=== PATIENT | male | born 1945 | race Caucasian/White ===

== ENCOUNTER 2019-05-11 05:30 | Inpatient (IN) ==
[2019-04-20 11:49] LABS: BUN Creatinine Ratio 13.9 (10-20); Calcium 8.9 mg/dl (8.5-10.1); Creatinine Clr Calc Pharmacy 81.9 ml/min; Est GFR (African American) 77.6; Potassium 4.4 mmol/L (3.5-5.1)
--- NOTE | 2019-04-20 11:51 | Anesthesiology Consultation ---
Date of Service April 20, 2019 Assessment & Plan (1) Encounter for pre-operative examination: Chart Review Chart Review: Acceptable Risk for Surgery (pending [facility] cardio clearance 05/07/19) and Patient seen in Pre Admission Testing Teaching & Discussion Instructed NPO after midnight before surgery, except medications with 15 cc of water. Medication instructions provided according to the PAT guidelines. History Surgery Operation Date: 05/11/19 07:30 Proposed Procedures p Robotic Laparoscopic Prostatectomy - Byron Astorga, Height/Weight Height: 5 ft 11 in Weight: 118.7 kg Allergies Allergy/AdvReac Type Severity Reaction Status Date / Time ketoconazole Allergy Unknown Rash Verified 04/20/19 09:09 metformin AdvReac Unknown Diarrhea Verified 04/20/19 09:09 Medications Home Medications Medication Instructions Recorded Confirmed Last Taken aspirin 81 mg tablet,delayed 81 mg PO DAILY 01/19/19 04/20/19 Unknown release nitroglycerin 0.4 mg sublingual 0.4 mg SL UD PRN 01/19/19 04/20/19 Unknown tablet pantoprazole 40 mg tablet,delayed 40 mg PO QAM 01/19/19 04/20/19 04/15/19 release atorvastatin 80 mg tablet 40 mg PO QAM tab 03/24/19 04/20/19 04/15/19 folic acid 1 mg tablet 1 mg PO DAILY 03/24/19 04/20/19 Unknown lisinopril 10 mg tablet 20 mg PO QAM 03/24/19 04/20/19 04/15/19 metoprolol tartrate 25 mg tablet 25 mg PO BID 03/24/19 04/20/19 04/15/19 multivitamin 1 tab PO DAILY 03/24/19 04/20/19 Unknown naproxen sodium 220 mg capsule 440 mg PO HS PRN cap 03/24/19 04/20/19 Unknown semaglutide 1 mg/dose (2 mg/1.5 2 mg SQ .once per week ml 03/24/19 04/20/19 Unknown mL) subcutaneous pen injector Past Medical History Medical History (Updated 04/20/19 @ 11:54 by Lewis Martinez) Diabetes History of heart attack DEC 2017 ...STENT X1 Hypercholesterolemia Hypertension Prostate cancer (Chronic) Sleep apnea DOES NOT USE CPAP Exercise / Class Metabolic Activity III < 4 Walking/Shop/Light housework (LIMITED MOBILITY 2/2 KNEE PAIN; DENIES CP OR SOB) Past Surgical History Surgical History H/O heart artery stent X 1 History of cardiac cath [place]...2018 - STENT X 1 History of prostate biopsy History of tooth extraction TEETH OUT Status post right knee replacement Past Anesthesia History No Hx of Anesthesia Complications and No Family Hx of Anesthesia Complications History of PONV No Hx of PONV and No Hx of Motion Sickness Social History Smoking Status: Former smoker tobacco type: cigarettes Smoking cigarettes per day: Quit 35 yrs ago;Less than 1 PPD x 15yrs Do You Dip or Chew Tobacco: No Smoking End Date: 40+ YRS AGO Hx Alcohol Use: No Hx Substance Use: No substance use type: does not use Review of Systems Pt denies any recent chest pain, shortness of breath, palpitations, cough, fever or URI. +congestion/cold Physical Exam Vital Signs BP: 104/76 P: 95bpm SPO2: 93% RA T: 98.0 F R: 16 ENMT Mouth: + dentures and + edentulous Thyromental Distance: > or= 3.5 Finger Breadths (4) Mallampati Class: III Neck normal visual inspection and + facial hair (full satudillo with short trimmed mustache, pt advised to trim prior to surgery); neck extension not limited Respiratory normal respiratory effort Auscultation: lungs clear to auscultation bilaterally Cardiovascular Rate/Rhythm: regular rate and regular rhythm Heart Sounds: no murmur Vessels: no carotid bruit Extremities: no edema Testing Laboratory Results 04/20/19 10:20 04/20/19 10:20 Urine Color Yellow 04/20/19 Unknown Urine Appearance Clear (Clear) 04/20/19 Unknown Urine pH 6.5 (4.5-7.5) 04/20/19 Unknown Ur Specific [place] > 1.045 (1.000-1.030) H 04/20/19 Unknown Urine Protein Negative (Negative) 04/20/19 Unknown Urine Glucose (UA) Negative (Negative) 04/20/19 Unknown Urine Ketones Negative (Negative) 04/20/19 Unknown Urine Nitrite Negative (Negative) 04/20/19 Unknown Ur Leukocyte Esterase Negative (Negative) 04/20/19 Unknown Blood Type B Positive 04/20/19 10:20 Antibody Screen NEGATIVE 04/20/19 10:20 *surgeon's office made aware of elevated WBC count Electrocardiogram Date: 04/08/19 Findings: + NSR @ (87bpm with sinus arrhythmia) Inferior infarct cited on or before 07/25/2017. Cannot rule out anterior infarct, age undetermined. Compared with EKG of 01/14/2018, T wave inversion less evident in inferior leads. Chest X-Ray Date: 04/20/19 Findings: + NAD Echocardiogram Date: 09/29/17 EF: 50-55% Normal LV size, mild concentric LVH. Base to mid inferior and adjacent septum severely hypokinetic. Small pericardial effusion. There is no diastolic compression of the right ventricle to suggest cardiac tamponade. Cardiac Catheterization Date: 12/28/17 Inferior STEMI/subtotal mid RCA occlusion. Minimal non-culprit coronary artery disease. Successful PCI of mid RCA with single drug-eluting stent.
--- NOTE | 2019-04-20 11:56 | PAT Medication Instructions ---
Medication Instructions Date of Service April 20, 2019 Home Medications aspirin 81 mg tablet,delayed release 81 mg PO DAILY nitroglycerin 0.4 mg sublingual tablet 0.4 mg SL UD PRN pantoprazole 40 mg tablet,delayed release 40 mg PO QAM atorvastatin 80 mg tablet 40 mg PO QAM tab folic acid 1 mg tablet 1 mg PO DAILY lisinopril 10 mg tablet 20 mg PO QAM metoprolol tartrate 25 mg tablet 25 mg PO BID multivitamin 1 tab PO DAILY naproxen sodium 220 mg capsule 440 mg PO HS PRN semaglutide 1 mg/dose (2 mg/1.5 mL) subcutaneous pen injector 2 mg SQ .once per week Continue as directed semaglutide 1 mg/dose (2 mg/1.5 mL) subcutaneous pen injector 2 mg SQ .once per week nitroglycerin 0.4 mg sublingual tablet 0.4 mg SL UD PRN ASK your surgeon for instructions naproxen sodium 220 mg capsule 440 mg PO HS PRN ASK your prescriber and surgeon aspirin 81 mg tablet,delayed release 81 mg PO DAILY DO NOT take the morning of surgery folic acid 1 mg tablet 1 mg PO DAILY lisinopril 10 mg tablet 20 mg PO QAM multivitamin 1 tab PO DAILY Take morning of surgery With a small sip of water, OTHERWISE NOTHING TO EAT OR DRINK AFTER MIDNIGHT: pantoprazole 40 mg tablet,delayed release 40 mg PO QAM atorvastatin 80 mg tablet 40 mg PO QAM metoprolol tartrate 25 mg tablet 25 mg PO BID Other Notes If you have any questions please call us at [phone] or [phone] or [phone] or [phone]
--- NOTE | 2019-04-20 12:21 | XRay Report ---
XR chest Pre-admission PA/Lat HISTORY: 74 years-old Male pat preoperative exam. No acute chest complaints COMPARISON: Chest radiograph 12/28/2017 TECHNIQUE: PA and lateral views of the chest FINDINGS: Cardiomediastinal and hilar silhouettes are within normal limits. Calcified plaque of the thoracic ao rtic arch. No pneumothorax, pleural effusion, focal airspace consolidation or overt pulmonary edema. Degenerative changes of the shoulders and spine. IMPRESSION: No acute process. The above report was generated using voice recognition software. It may contain grammatical, syntax o r spelling errors. Electronically signed by: Jeff Rollins M.D. 04/20/2019 12:20 PM
[2019-04-20 12:55] LABS: Basophils # (auto) 0.05 K/uL (0-0.2); Basophils % (auto) 0.3 %; Eosinophils # (auto) 0.33 K/uL (0-0.5); Eosinophils % (auto) 2.1 %; Hemoglobin 16.5 g/dL (14.0-18.0); Immature Granulocytes # (auto) 0.05 K/uL (0.00-0.02); Immature Granulocytes % (auto) 0.3 %; Lymphocytes # (auto) 2.14 K/uL (1.2-3.4); Lymphocytes % (auto) 13.9 %; Mean Corpuscular Hemoglobin 29.7 pg (25-34); Mean Corpuscular Hgb Conc 33.7 g/dL (32-36); Mean Corpuscular Volume 88.3 fL (80-100); Mean Platelet Volume 10.9 fL (7.4-10.4); Monocytes % (auto) 8.4 %; Neutrophils # (auto) 11.58 K/uL (1.4-6.5); Platelet Count 229 K/uL (130-400); RDW Coefficient of Variation 13.4 % (11.5-14.5); RDW Standard Deviation 43.5 fL (36.4-46.3); Red Blood Count 5.55 M/uL (4.7-6.1); White Blood Count 15.45 K/uL (4.8-10.8)
[2019-04-20 13:11] LABS: Appearance Urine Clear (Clear); Bilirubin Urine Negative (Negative); Blood Urine Negative (Negative); Color Urine Yellow; Glucose Urine UA Negative (Negative); Ketones Urine Negative (Negative); Leukocyte Esterase Urine Negative (Negative); Nitrite Urine Negative (Negative); Protein Urine Negative (Negative); Specific Gravity Urine > 1.045 (1.000-1.030); Urobilinogen Urine Negative (Negative); pH Urine 6.5 (4.5-7.5)
[2019-05-11] MEDS ORDERED: LR 15ML/HR IV SCH (06:00)
[2019-05-11] MEDS ORDERED: LARYING-O-JET KIT (LTA) ONE (06:41)
[2019-05-11] MEDS ORDERED: PROPOFOL IV EMULSION 10 MG/ML 20 ML VIAL IV ONE (06:41)
[2019-05-11] MEDS ORDERED: MIDAZOLAM HCL 1 MG/ML 2ML VIAL ONE (06:41)
[2019-05-11] MEDS ORDERED: fentaNYL citrate 100 MCG/2 ML VIAL ONE ×5 (06:41→12:39)
[2019-05-11] MEDS ORDERED: LIDOCAINE HCL 2% 2 ML VIAL/AMP(20MG/ML) INFIL ONE (06:41)
[2019-05-11] MEDS ORDERED: ACETAMINOPHEN 1000 MG/100 ML IV IV ONE (06:51)
[2019-05-11] MEDS ORDERED: BUPIVACAINE 0.5 % 5 MG/1 ML MPF 30ML VIAL ONE (06:58)
--- NOTE | 2019-05-11 07:19 | History & Physical Bridge Note ---
Date of Service May 11, 2019 History & Physical Bridge Note I have examined the patient, reviewed the History & Physical and in the interval since the performance of the History & Physical I have noted the following changes of clinical significance: no changes noted
[2019-05-11] MEDS ORDERED: PHENYLEPHRINE 100MCG/ML 5ML SYR ONE ×2 (08:28→09:40)
[2019-05-11] MEDS ORDERED: ROCURONIUM BROMIDE 10 MG/ML 5 ML VIAL ONE ×3 (08:29→09:16)
[2019-05-11] MEDS ORDERED: CEFAZOLIN 250 MG/ML 1 GM VIAL ONE (08:29)
[2019-05-11] MEDS ORDERED: ePHEDrine sulfate 50 MG/ML SYR ONE (08:29)
[2019-05-11] MEDS ORDERED: CEFAZOLIN 3000MG 72.5 ML IV ONE (09:33)
[2019-05-11] MEDS ORDERED: NALOXONE HCL 0.4 MG/1 ML VIAL/CARP IV PRN (10:13)
[2019-05-11] MEDS ORDERED: ONDANSETRON INJ 2 MG/ML 2 ML VIAL IV PRN ×2 (10:13→14:37)
[2019-05-11] MEDS ORDERED: PROMETHAZINE HCL 12.5 MG in SODIUM CHLORIDE 0.9% 50 ML IV PRN (10:13)
[2019-05-11] MEDS ORDERED: LABETALOL HCL IV 5 MG/ML 20ML IV PRN (10:13)
[2019-05-11] MEDS ORDERED: FLUMAZENIL 0.1 MG/1 ML 10 ML VIAL IV PRN (10:13)
[2019-05-11] MEDS ORDERED: HYDROmorphone INJ 1 MG/ML SYRINGE IV PRN (10:13)
[2019-05-11] MEDS ORDERED: ATROPINE SULFATE 0.1 MG/ML 10ML SYR IV PRN (10:13)
[2019-05-11] MEDS ORDERED: ePHEDrine sulfate 50 MG/ML AMP IV PRN (10:13)
[2019-05-11] MEDS ORDERED: SURGICEL ABSORB HEMOSTAT 2IN X 14IN TOP ONE (11:06)
[2019-05-11] MEDS ORDERED: GLYCOPYRROLATE 0.2 MG/ML VIAL ONE (11:39)
[2019-05-11] MEDS ORDERED: NEOSTIGMINE METHYLSULFATE 5 MG/5 ML SYR ONE (11:39)
[2019-05-11] MEDS ORDERED: ONDANSETRON INJ 2 MG/ML 2 ML VIAL ONE ×2 (12:39)
--- NOTE | 2019-05-11 12:57 | Post Operative Brief Note ---
PG Immediate Post Op with CF Date of Surgery May 11, 2019 Pre & Post Diagnosis Operation Date: 05/11/19 07:30 Pre-Op Diagnosis: Prostate Cancer Post-Op Diagnosis: Prostate Cancer I identified the patient and participated in the time-out.: Yes Procedure Operation Date: 05/11/19 07:30 Actual Procedures p Robotic-assist Laparoscopic Prostatectomy, bilateral pelvic lymph node dissection - Byron Astorga DO Surgeon Byron Astorga, II, DO Porcelain Enamel Laborer Kvng ELIZABETH Estimated Blood Loss 200 Findings Consistent with Post-Op Diagnosis Prostate fixated posteriorly near right seminal vesicle Specimens Specimen Description: Permanent specimens A: prostate and seminal vesicles B: mass posterior to prostate C: right pelvic lymph nodes (sent fresh) D: left pelvic lymph nodes (sent fresh) E: apex margin Drains Vieyra Catheter (16fr vieyra catheter placed at beginning of procedure by surgeon, vieyra demonstrates clear yellow urine.Output measured and recorded by anesthesia. Catheter replaced with 18fr silicone vieyra intraoperatively and r emains with patient upon discharge from OR.) and Robert-Valladares Drain (10mm flat) Anesthesia Type General Complications none Disposition Disposition: Recovery Room Overlapping Procedure I was present for: the critical portions of procedure. I was immediately available: during the entire case. Back up surgeon: was not required during procedure.
[2019-05-11] MEDS: fentaNYL citrate 100 MCG/2 ML VIAL IV PRN ×2 (13:27→13:36)
[2019-05-11 13:43] LABS: Basophils # (auto) 0.05 K/uL (0-0.2); Basophils % (auto) 0.2 %; Eosinophils # (auto) 0.06 K/uL (0-0.5); Eosinophils % (auto) 0.3 %; Hematocrit (blood only) 45.4 % (42-52); Hemoglobin 15.3 g/dL (14.0-18.0); Immature Granulocytes # (auto) 0.06 K/uL (0.00-0.02); Immature Granulocytes % (auto) 0.3 %; Lymphocytes # (auto) 2.58 K/uL (1.2-3.4); Lymphocytes % (auto) 11.7 %; Mean Corpuscular Hemoglobin 29.7 pg (25-34); Mean Platelet Volume 9.8 fL (7.4-10.4); Monocytes # (auto) 1.33 K/uL (0.11-0.59); Monocytes % (auto) 6.1 %; Neutrophils % (auto) 81.4 %; Platelet Count 318 K/uL (130-400); RDW Coefficient of Variation 13.3 % (11.5-14.5); RDW Standard Deviation 42.8 fL (36.4-46.3); Red Blood Count 5.16 M/uL (4.7-6.1); White Blood Count 21.98 K/uL (4.8-10.8)
[2019-05-11 13:44] LABS: Mean Corpuscular Hgb Conc 33.7 g/dL (32-36)
--- NOTE | 2019-05-11 13:55 | Anesthesiology Progress Note ---
Date of Service May 11, 2019 Anesthesia Post Procedure Vital Signs Vital Signs: Temp Pulse Pulse Resp BP BP Pulse Ox 05/11/19 13:45 88 15 126/69 97 05/11/19 13:35 96 H 22 118/76 96 05/11/19 13:25 93 H 16 157/80 H 96 05/11/19 13:15 83 12 173/90 H 98 05/11/19 13:06 36.4 C L 98 H 17 143/96 H 98 05/11/19 06:04 36.6 C 109 H 20 132/87 92 Pain Intensity Abdomen: Pain Intensity: 3 Transfer of Care Handoff Completed per policy Notes Mental Status: alert / awake / arousable Patient Amnestic to Procedure: Yes Nausea / Vomiting: adequately controlled Pain: adequately controlled Airway Patency, RR, SpO2: stable & adequate BP & HR: stable & adequate Hydration State: stable & adequate Anesthetic Complications: no major complications apparent
[2019-05-11 14:03] LABS: BUN Creatinine Ratio 10.5 (10-20); Calcium 8.8 mg/dl (8.5-10.1); Creatinine Clr Calc Pharmacy 65.7 ml/min; Est GFR (African American) 63.3; Est GFR (Non-African American) 54.6; Potassium 4.5 mmol/L (3.5-5.1)
--- NOTE | 2019-05-11 14:03 | Operative Report ---
PG Post Operative Report Pre & Post Diagnosis Operation Date: 05/11/19 07:30 Pre-Op Diagnosis: Prostate Cancer Post-Op Diagnosis: Prostate Cancer I identified the patient and participated in the time-out.: Yes Procedure Operation Date: 05/11/19 07:30 Actual Procedures p Robotic-assist Laparoscopic Prostatectomy, bilateral pelvic lymph node dissection - Byron Astorga DO Surgeon Byron Astorga, II, DO Roofing Tile Sorter Kvng ELIZABETH Estimated Blood Loss 200 Findings Consistent with Post-Op Diagnosis Very large prostate with median lobe. Significant issues with resection of the prostate near the seminal vesicles and the entire posterior area. Nodule/mass posterior to the prostate above the perirectal fascia. Specimens Prostate and Seminal Vesicle Left Pelvic Lymph Nodes Right Pelvic Lymph Nodes. Nodule posterior to prostate Margin at [place]. Drains Veiyra catheter. Anesthesia Type General Complications none Disposition Disposition: Recovery Room Indications Patient with Prostate Cancer. Risk and benefits were discussed at length. Patient elected to undergo robotic assisted laparoscopic Radical Prostatectomy. Description of Procedure The patient was brought to the operative suite and placed under general endotracheal intubation anesthesia in the supine position. The patient was transferred to the dorsal lithotomy position. At this point, the patient prepped and draped in the usual sterile fashion and a timeout was completed. Preoperative antibiotics of Ancef 3 grams had been given. BRADEN's and SCD's were placed on the patient's lower extremities. A catheter was placed using sterile technique. With the time out completed the patient was placed into Trendelenburg and the skin at the umbilicus was anesthetized. A small incision was made superior to the umbilicus. A Varess Needle was placed and confirmed to be in the abdominal cavity. Water drop test passed. The Abdominal cavity was insufflated to 15 mmHG. The camera port was then placed. A laparoscopic camera was placed into the port and the abdominal cavity inspected. No concerning features were noted. At this point, the skin was marked for port placement and 8 mm working ports were placed. The skin was anesthetized down to fascia and an approx 1cm incision was made to place the 3 x 8 mm ports. A 12 mm and 5 mm therapist's assistant ports were also placed in similar fashion under direct visualization. The patient was transferred into steep Trendelenburg position and the legs lowered. The robo t was positioned and docked. The camera was placed and all trocars were positioned under direct visualization. Caesar phillips Haley ELIZABETH were integral in port placement, camera utilization, and docking procedure. They both remained in sterile attire and then proceeded to assist the remainder of the case. The were involved in the entire procedure from opening to closing. At this point, I transitioned to the robotic console. At this point, the sigmoid colon was mobilized superiorly and the pelvis assessed. Adhesions were freed to allow mobilization. The peritoneum in the midline was opened between rectum and bladder and the vas deferens and seminal vesicles exposed. These were dissected with blunt technique. The vas was clipped and cut and mobilized. Cautery was used to assist dissection avoiding the tissue posteriorly near the rectum. The tissues lateral to the seminal vesicles were clipped with a hemolock and all bleeding controlled. This was taken as inferior as possible from this position. The medial umbilical ligaments were then identified and the peritoneum directly lateral on the right followed by the left was opened. The tissues were bluntly dissected to free the bladder's lateral attachments. This was taken down to the pubic bone and exposed the endopelvic fascia bilaterally. The medial ligaments were cut and the bladder dropped. The tissues was dissected anterior to the prostate. The endopelvic fascia on each side was then opened and the lateral edges of the prostate dissected. The Dorsal venous complex of the prostate was dissected and assessed. A 2-0 suture was used to ligate the vessels. A suspension stitch was used and clipped. Electrocautery was used to cut the anterior attachments, the puboprostatic ligaments, and venous tissues. The vieyra was manipulated to better visual the bladder neck and dissection was taken using electrocautery. The bladder neck was opened and dissected from the prostate. The UO were identifed and dissection taken in a direction to avoid each side. A large median lobe was appreciated which required careful dissection. This slowed dissection down. The prostate itself was found to be very large and made dissection difficult. The bladder was then opened posteriorly. The vas stump and seminal vesicles were exposed and used to assist in traction to dissect. The prostatic pedicles were better exposed. The posterior prostate was dissected. During this dissection multiple areas were found to be severely adhered to the prostate. The right seminal vesicle was significant attached proximal to the prostate down to the posterior fascial layers. This was dissected free. Dr. Garcia with General Surgery was alerted and assessed to see if there was a concern for rectal involvement. A probe was utilized. There was not a significant concern. A mass vs nodule was noted in the area discrete from the surrounding tissues but attached to the tissues. The nodule was able to be dissected free. This was sent as a separate specimen. An attempt was made to limit cautery and utilize cold dissection of the lateral posterior prostate to attempt preservation of the neurovascular bundle bilaterally. Hemolock clips were utilized to clip the prostatic pedicle bilaterally. This was achieved with some success on the left, however due to the severe adherence as mentioned above, this was limited on the right. The dissection was taken to the apex of the prostate. The anterior prostate was then released and the urethra exposed. Cold cutting was used to open the anterior portion and expose the catheter. This was removed and the urethra incised. The prostate was further freed and grasped and removed from the field. An additional small amount of tissue was taken from the urethral side and sent separately. The entire dissection bed was inspected. Hemostatic agent was placed in the region. No areas of injury or bleeding was noted. Care was taken to examine the perirectal tissues. A probe was placed and no injuries or other issues were observed. The bladder neck and urethra were then approximated with a running barbed suture starting at the 5 o'clock position and moving to the 12 o'clock on each side. This was tied at the anterior portion. A leak test was completed without any evidence of issues. The right and left pelvic lymph tissue was identified in relation to the iliac vessels. Distal dissection was taken to the Node of [place]. Inferiorly the obturator vessels and nerve were identified. Lymphatic tissue within the surround fat tissue was dissected. This packet of tissues were sent for pathologic analysis and lymph node assessment. This was done for each separate side. Hemostatic agent was placed on the exposed vessels. The entire dissection space was inspected one final time. No bleeding or injuries or areas of concern were noted. No tumor or other concerning features were noted. At this point, the robot was undocked and moved away from the patient. The patient was taken out of Trendelenberg. The port sites were all assessed laparoscopically. The endoscopic bag was moved into the midline port. The 10mm port site was utilized to place a flat drain into the pelvis. This was secured with a silk suture. The other ports were assessed and no issues observed. The umbilical incision was opened further exposing fascia which was then opened in order to removed the prostate in the bag. The prostate was removed. A running vicryl 1-0 suture was used to close fascia. The skin at each site was closed with a running 4-0 Monocryl suture. The area was cleaned and glue placed on each incision. The patient was cleaned and bandaged, aroused from anesthesia, and transferred to the pacu in stable condition having tolerated the procedure well with no complications. I was present and participated in all aspects of the procedure. Caesar and GLENN De Leon were critical in the portions as mentioned above. Will plan to observe postoperatively and monitor. Vieyra to be remain in place until followup. I attest to the content of the Intraoperative Record and any orders documented therein. Any exceptions are noted below.
[2019-05-11] MEDS ORDERED: OXYCODONE HCL IR 5 MG TAB (IMMEDIATE RELEASE) PO PRN (14:37)
[2019-05-11] MEDS ORDERED: NITROGLYCERIN SL 0.4 MG/TAB TAB SL PRN (14:37)
[2019-05-11] MEDS ORDERED: MoRPHine SULFATE 4 MG/ML 1 ML CARP\\VIAL ONE (14:39)
[2019-05-11] MEDS ORDERED: MoRPHine SULFATE 2 MG/ML CARP IV PRN (14:44)
[2019-05-11] MEDS ORDERED: MoRPHine SULFATE 4 MG/ML 1 ML CARP\\VIAL IV PRN (14:45)
[2019-05-11] MEDS ORDERED: PHARMACY GLYCEMIC MGMT CONSULT PRN (14:48)
[2019-05-11] MEDS ORDERED: DEXTROSE 50% 50 ML SYRINGE IV PRN (15:00)
[2019-05-11] MEDS ORDERED: CARBOHYDRATES FOR HYPOGLYCEMIA PO PRN (15:00)
[2019-05-11] MEDS ORDERED: GLUCOSE 10 TABS/TUBE PO PRN (15:00)
[2019-05-11] MEDS ORDERED: GLUCOSE 40% GEL 15 GM TUBE PO PRN (15:00)
[2019-05-11] MEDS ORDERED: GLUCAGON FOR INJ 1 MG VIAL IM PRN (15:00)
--- NOTE | 2019-05-11 15:00 | Pharmacy Report ---
Glycemic Control Consultation - Date of Service May 11, 2019 - Scope Scope: Glycemic Pharmacist consulted by Theresa De Leon on 05/11 for glycemic control and to write orders per [facility] inpatient glycemic control protocol - Objective Weight: 114.759 kg Accuchecks BSG (last 24hrs): 05/11/19 05/11/19 05/11/19 06:07 13:09 13:27 Glucose 211 H POC Glucose 170 H 182 H Laboratory Data (last 24hrs): 05/11/19 13:27 Potassium 4.5 Carbon Dioxide 28 Anion Gap 4.0 Creatinine 1.29 Est Cr Clr Drug Dosing 65.7 - Recent Pertinent Medications Outpatient Anti-diabetic Regimen: * semaglutide sq weekly * A1c = ordered for 8 am Risk Factors for Insulin Resistance: * Recent Surgery: POD 0 * Diet: clears - Assessment & Plan Assessment & Plan: ASSESSMENT: * 74 year old now s/p prostatectomy. PMHx significant for diabetes, htn, hld, CAD, prostate cancer * Patient started on clears postop op - last A1C 8.9 from 2017; ordered for tomorrow AM * Will utilize basal/bolus dosing postop for glycemic control PLAN FOR INPATIENT GLYCEMIC CONTROL: * Basal insulin * Lantus per scale HS -For bsg less than 180 - no insulin -For bsg 180-220 - 10 units -For BSG greater than 220- 15 units * Bolus insulin * NovoLog per scale ACHS or Q6hrs while NPO * Goal Range: Low 110 mg/dL - High 140 mg/dL * Correction Factor: 20 mg/dL/unit * Nutritional / Prandial insulin per carb ratio of 1 unit per 7 grams CHO consumed * Please note that the plan above was derived based on current level of insulin resistance and hospital stress. These recommendations are appropriate for inpatient admission only. Plan of care upon discharge will need to be reassessed to avoid potential outpatient hypo/hyperglycemia. Thank you.
[2019-05-11] MEDS: ACETAMINOPHEN 1,000 MG/100 ML VIAL IV SCH ×2 (15:34→22:40)
[2019-05-11] MEDS: LACTATED RINGER'S 1,000 ML IV SCH ×2 (15:34→23:51)
[2019-05-11] MEDS: CEFAZOLIN 2000MG 2,000 MG/15 ML SYR IV SCH (16:45)
[2019-05-11] MEDS: INSULIN ASPART 100 UNITS/ML 3 ML PEN SC SCH ×2 (18:27→21:53)
[2019-05-11] MEDS: METOPROLOL TARTRATE 25 MG TAB PO SCH (20:59)
[2019-05-11] MEDS ORDERED: LANTUS PER UNIT CHARGE SQ SCH (21:00)
[2019-05-11] MEDS: OXYCODONE HCL IR 5 MG TAB (IMMEDIATE RELEASE) PO PRN (21:58)
[2019-05-12] MEDS: CEFAZOLIN 2000MG 2,000 MG/15 ML SYR IV SCH (00:02)
[2019-05-12] MEDS: INSULIN ASPART 100 UNITS/ML 3 ML PEN SC SCH ×6 (00:18→20:51)
[2019-05-12] MEDS: OXYCODONE HCL IR 5 MG TAB (IMMEDIATE RELEASE) PO PRN (06:01)
[2019-05-12] MEDS: ACETAMINOPHEN 1,000 MG/100 ML VIAL IV SCH ×3 (06:43→22:24)
[2019-05-12 06:51] LABS: Basophils # (auto) 0.01 K/uL (0-0.2); Basophils % (auto) 0.1 %; Eosinophils # (auto) 0.12 K/uL (0-0.5); Eosinophils % (auto) 1.1 %; Hematocrit (blood only) 42.3 % (42-52); Hemoglobin 13.8 g/dL (14.0-18.0); Immature Granulocytes # (auto) 0.04 K/uL (0.00-0.02); Immature Granulocytes % (auto) 0.4 %; Lymphocytes # (auto) 1.69 K/uL (1.2-3.4); Mean Corpuscular Hemoglobin 29.2 pg (25-34); Mean Corpuscular Hgb Conc 32.6 g/dL (32-36); Mean Corpuscular Volume 89.6 fL (80-100); Mean Platelet Volume 9.8 fL (7.4-10.4); Monocytes # (auto) 1.29 K/uL (0.11-0.59); Monocytes % (auto) 11.5 %; Neutrophils # (auto) 8.08 K/uL (1.4-6.5); Neutrophils % (auto) 71.9 %; Platelet Count 267 K/uL (130-400); RDW Coefficient of Variation 13.5 % (11.5-14.5); RDW Standard Deviation 44.2 fL (36.4-46.3); Red Blood Count 4.72 M/uL (4.7-6.1); White Blood Count 11.23 K/uL (4.8-10.8)
[2019-05-12 07:13] LABS: BUN Creatinine Ratio 10.3 (10-20); Calcium 8.6 mg/dl (8.5-10.1); Creatinine Clr Calc Pharmacy 70.6 ml/min; Est GFR (African American) 69.1; Est GFR (Non-African American) 59.6; Potassium 4.2 mmol/L (3.5-5.1)
[2019-05-12 08:26] LABS: Estimated Average Glucose 154 mg/dl
[2019-05-12] MEDS: ATORVASTATIN 40 MG TAB PO SCH (09:09)
[2019-05-12] MEDS: METOPROLOL TARTRATE 25 MG TAB PO SCH ×2 (09:09→20:51)
[2019-05-12] MEDS: MULTIVITAMIN TAB PO SCH (09:09)
[2019-05-12] MEDS: FOLIC ACID 1 MG TAB PO SCH (09:09)
[2019-05-12] MEDS: PANTOprazole 40 MG TAB PO SCH (09:09)
[2019-05-12] MEDS: lisinopriL 20 MG TAB PO SCH (09:09)
[2019-05-12] MEDS: HEPARIN SOD 5,000 UNIT/0.5 ML VIAL SQ SCH ×2 (09:11→20:49)
--- NOTE | 2019-05-12 09:16 | Urology Progress Note ---
Date of Service May 12, 2019 Assessment & Plan (1) Prostate cancer: 74 yo M POD #1 RALRP w/ BPLND s/p prostate cancer with Dr. Astorga. Expected clinical course reviewed. Progressing as anticipated. - Continue clear liquids this AM, plan to advance diet for lunch - OOB today, encourage ambulation - Encourage IS every hour while awake - Continue vieyra - Maintain IRWIN - Plan to discharge tomorrow Subjective 74 yo M POD #1 RALRP w/ BPLND s/p prostate cancer with Dr. Astorga. Chart review: Hgb 13.8 Cr 1.20 Afebrile IRWIN output acceptable Patient awake and lying in bed this AM. He states he was out of bed last night and felt some dizziness and nausea when up. Has not been OOB yet today. Tolerating clear liquids. Pain is controlled with PO pain medication. Vieyra is intact and draining pink tinged urine. No urgency or catheter discomfort. Had sensation of needing to have BM last night, but did not. Review of Systems Review of Systems: All systems reviewed & are unremarkable except as noted in HPI & below Physical Exam Physical Exam: NAD Awake, AOx3 Normal respiratory effort Abd nondistended, soft. IRWIN drain with minimal sanguinous drainage Incisions c/d/i Vieyra intact, draining pink tinged red urine No pedal edema Results & Data Vital Signs (Past 12 Hours) Vital Signs Temp Pulse Resp BP BP Pulse Ox 05/12/19 07:30 36.9 C 86 16 117/61 93 05/12/19 04:00 36.7 C 91 H 16 119/68 95 05/11/19 23:23 37 C 101 H 18 107/69 92 PG Care Time/CCT Total # of Minutes Spent Total Time Spent with Patient: Total time spent is greater than 50% in coordination of care (as documented) at patient's floor/unit and/or counseling patient:
[2019-05-12] MEDS: LACTATED RINGER'S 1,000 ML IV SCH ×2 (10:18→19:52)
--- NOTE | 2019-05-12 14:46 | Pharmacy Report ---
Pharmacy Glycemic Short Note 2 - Date of Service May 12, 2019 - Glycemic Short BSG Results (Last 24 hours): 05/11/19 05/11/19 05/12/19 17:02 20:34 00:11 Glucose POC Glucose 184 H 195 H 164 H 05/12/19 05/12/19 05/12/19 04:02 06:08 08:19 Glucose 146 H POC Glucose 152 H 144 H 05/12/19 12:02 Glucose POC Glucose 125 H ASSESSMENT: 05/12: * Patient received total of 23 units of insulin yesterday, of which 10 were basal insulin * Fasting BSG 146 mg/dL - will continue with scale for HS of Lantus * Lunchtime BSG trending down - will loosen CR slightly 05/11: * 74 year old now s/p prostatectomy. PMHx significant for diabetes, htn, hld, CAD, prostate cancer * Patient started on clears postop op - last A1C 8.9 from 2018; ordered for tomorrow AM * Will utilize basal/bolus dosing postop for glycemic control PLAN FOR INPATIENT GLYCEMIC CONTROL: * Basal insulin * Lantus per scale HS -For bsg less than 140 - 10 units -For bsg 140 or more - 15 units * Bolus insulin * NovoLog per scale ACHS or Q6hrs while NPO * Goal Range: Low 110 mg/dL - High 140 mg/dL * Correction Factor: 20 mg/dL/unit * Nutritional / Prandial insulin per carb ratio of 1 unit per 7 grams CHO consumed * Please note that the plan above was derived based on current level of insulin resistance and hospital stress. These recommendations are appropriate for inpatient admission only. Plan of care upon discharge will need to be reassessed to avoid potential outpatient hypo/hyperglycemia. Thank you.
[2019-05-12] MEDS ORDERED: INSULIN GLARGINE SOLOSTAR 100 UNITS/ML 3 ML PEN SC SCH (21:00)
[2019-05-13] MEDS: LACTATED RINGER'S 1,000 ML IV SCH (06:00)
[2019-05-13 06:43] LABS: Basophils # (auto) 0.04 K/uL (0-0.2); Basophils % (auto) 0.4 %; Eosinophils # (auto) 0.26 K/uL (0-0.5); Eosinophils % (auto) 2.7 %; Hematocrit (blood only) 41.7 % (42-52); Hemoglobin 13.7 g/dL (14.0-18.0); Immature Granulocytes # (auto) 0.02 K/uL (0.00-0.02); Immature Granulocytes % (auto) 0.2 %; Lymphocytes # (auto) 2.06 K/uL (1.2-3.4); Lymphocytes % (auto) 21.8 %; Mean Corpuscular Hemoglobin 29.6 pg (25-34); Mean Corpuscular Hgb Conc 32.9 g/dL (32-36); Mean Corpuscular Volume 90.1 fL (80-100); Mean Platelet Volume 9.9 fL (7.4-10.4); Monocytes # (auto) 1.21 K/uL (0.11-0.59); Monocytes % (auto) 12.8 %; Neutrophils # (auto) 5.88 K/uL (1.4-6.5); Neutrophils % (auto) 62.1 %; Platelet Count 225 K/uL (130-400); RDW Coefficient of Variation 13.6 % (11.5-14.5); RDW Standard Deviation 44.7 fL (36.4-46.3); Red Blood Count 4.63 M/uL (4.7-6.1); White Blood Count 9.47 K/uL (4.8-10.8)
[2019-05-13] MEDS: ACETAMINOPHEN 1,000 MG/100 ML VIAL IV SCH (06:44)
[2019-05-13 07:21] LABS: Calcium 8.6 mg/dl (8.5-10.1); Creatinine Clr Calc Pharmacy 83.1 ml/min; Est GFR (African American) 84.1; Est GFR (Non-African American) 72.6; Potassium 4.4 mmol/L (3.5-5.1)
[2019-05-13] MEDS: ATORVASTATIN 40 MG TAB PO SCH (09:08)
[2019-05-13] MEDS: METOPROLOL TARTRATE 25 MG TAB PO SCH (09:08)
[2019-05-13] MEDS: FOLIC ACID 1 MG TAB PO SCH (09:08)
[2019-05-13] MEDS: MULTIVITAMIN TAB PO SCH (09:08)
[2019-05-13] MEDS: HEPARIN SOD 5,000 UNIT/0.5 ML VIAL SQ SCH (09:09)
[2019-05-13] MEDS: lisinopriL 20 MG TAB PO SCH (09:10)
[2019-05-13] MEDS: PANTOprazole 40 MG TAB PO SCH (09:10)
[2019-05-13] MEDS: INSULIN ASPART 100 UNITS/ML 3 ML PEN SC SCH ×2 (09:11→12:38)
--- NOTE | 2019-05-13 11:18 | Urology Progress Note ---
Date of Service May 13, 2019 Assessment & Plan (1) Prostate cancer: 74 yo M POD #2 RALRP w/ BPLND with Dr. Astorga. Pt doing very well, progressing as expected. Okay to d/c IVFs and IRWIN drain. Teach conversion of overnight bag to leg bag. Expected clinical course reviewed, all questions answered. Followup appointments have been arranged. Okay to discharge home. Subjective 74 yo M POD #2 RALRP w/ BPLND with Dr. Astorga. Doing very well today. Ambulating in halls. Passing flatus, no BM. Tolerating regular diet well. Denies n/f/v/c Labs reviewed- WNL Review of Systems Review of Systems: All systems reviewed & are unremarkable except as noted in HPI & below Physical Exam Physical Exam: A&Ox3 Resp rate reg IRWIN putting out moderate serosang vieyra draining light pink tinged Results & Data Vital Signs (Past 12 Hours) Vital Signs Temp Pulse Resp BP BP Pulse Ox 05/13/19 07:38 36.8 C 83 17 154/84 H 94 05/12/19 23:37 36.9 C 93 H 19 119/68 91 PG Care Time/CCT Total # of Minutes Spent Total Time Spent with Patient: Total time spent is greater than 50% in coordination of care (as documented) at patient's floor/unit and/or counseling patient:
--- NOTE | 2019-05-13 17:02 | Discharge Summary ---
Date of Service May 13, 2019 Admission HPI Per Admitting Provider see H&P Admission Exam Per Admitting Provider see HPI Principal Diagnosis prostate cancer Discharge Exam see note Discharge Data Allergies Allergy/AdvReac Type Severity Reaction Status Date / Time ketoconazole Allergy Unknown Rash Verified 05/11/19 05:45 metformin AdvReac Unknown Diarrhea Verified 05/11/19 05:45 Procedures Performed Operation Date: 05/11/19 07:30 Actual Procedures p Robotic-assist Laparoscopic Prostatectomy, bilateral pelvic lymph node dissection - Byron Astorga DO Hospital Course (1) Prostate cancer: 74 yo M POD #2 RALRP w/ BPLND with Dr. Astorga. PT was admitted for planned robot assisted laproscopic partial prostatectomy with Dr. Astorga. No complications and pt was discharged home on post operative day 2. Pt doing very well, progressing as expected. Okay to d/c IVFs and IRWIN drain. Teach conversion of overnight bag to leg bag. Expected clinical course reviewed, all questions answered. Followup appointments have been arranged. Okay to discharge home. Total Time Total Time Spent Total Time Spent (In Minutes): 10 Total Time Includes: Examination of the Patient, Discharge Planning, Medication Reconciliation and Communication With Other Providers Discharge Plan Discharge Items Patient Disposition: Home - Self-Care Reason For Visit: Prostate Cancer Discharge Diagnosis: Prostate cancer Activity: Per Instructions section Lifting: No more than 25 pounds Bathing: Keep incision dry Sexual Activity: Wait until after follow-up appointment Exercise/Sports: Wait until after follow-up appointment Driving/Machine Use: Resume 1 day after discharge Non-emergency contact: Urologist Call non-emergency contact if: your pain is not controlled, your temperature is above 101, your wound has increased redness, your wound has increased drainage and your wound pain has increased Follow-up/Referrals: PCP,NO [Primary Care Provider] - Diet: Regular Addtl Attending Provider Instructions: Please take all medications as prescribed and keep all follow-ups as scheduled. Please call our office at [phone] with any questions, concerns or need to reschedule appointments for any reason. We are happy to assist you. Activity: We recommend having someone with you for the first few days after surgery to help care for you. For the first 2 weeks after surgery, we would like you to get up and walk around your house. However, we recommend limit physical activity that would increase your heart rate. This will allow your body to rest and heal. Take naps if you feel tired. Don't lift anything heavier than 10 pounds, mow the law or ride a bicycle until your follow-up appointment. Please avoid long car rides. Home Care: Unless directed otherwise, drink 6 to 8 glasses of water a day (enough to keep your urine light colored). This will also help keep a healthy flow of urine. We recommend using a stool softener for the first two weeks to avoid constipation. [place] Catheter care: Keep the catheter well secured with either a leg back or leg strap with large bag. Empty your bag when it's about half full. You may notice some blood in the bag. This is normal after surgery and while the catheter is in place. Use mild soap (such as Dove or Dial) and water to wash the catheter and the head of your penis daily, or more frequently if needed. Return to your normal diet, we encourage good protein intake to promote healing. You may shower as normal. Please avoid tub baths or soaking until catheter removed and incisions well healed. Wearing sweat pants while you have the catheter is recommended, they will be more comfortable. Follow-up Your follow up appointments for having your catheter removed, and follow up with your physician should already be scheduled. If you have any questions regarding this, please contact our office. Your final pathology report will be discussed at your physician follow-up appointment. Call [facility] at [phone] right away if you have any of the following: Chest pain or trouble breathing (call [phone] or go to the hospital) Fever of 101F or higher, uncontrolled vomiting Heavy bleeding, clots, or bright red blood from the catheter Catheter that falls out or stops draining Foul-smelling discharge from your catheter Redness, swelling, warmth, or increased pain at your incision site Drainage, pus, or bleeding from your incision Pending Studies at Discharge: Yes (pathology) Stand-Alone Forms: My Certain, Smoking Cessation Medications and DC Order Prescriptions: New oxycodone-acetaminophen [Percocet] 5-325 mg tablet 1 tab PO TID PRN (Reason: pain) Qty: 14 RF: 0 docusate sodium [Colace] 100 mg capsule 100 mg PO BID Qty: 60 RF: 0 Continued folic acid 1 mg tablet 1 mg PO DAILY RF: 0 lisinopril 10 mg tablet 20 mg PO QAM RF: 0 metoprolol tartrate 25 mg tablet 25 mg PO BID RF: 0 multivitamin tablet 1 tab PO DAILY RF: 0 naproxen sodium [Aleve] 220 mg capsule 440 mg PO HS PRN (Reason: Pain) RF: 0 semaglutide 1 mg/dose (2 mg/1.5 mL) pen injector 2 mg SQ .COMPLEX RF: 0 aspirin 81 mg tablet,delayed release (DR/EC) 81 mg PO DAILY RF: 0 nitroglycerin 0.4 mg tablet, sublingual 0.4 mg SL UD PRN (Reason: Chest Pain) RF: 0 pantoprazole 40 mg tablet,delayed release (DR/EC) 40 mg PO QAM RF: 0 atorvastatin 80 mg tablet 40 mg PO QAM RF: 0 Discharge Orders: Discharge Order (Routine); Ordered 05/13/19 Ordered By: Klarissa Carroll/Other Patient Handouts: Catheter Bag Urinary Empty Clean, Catheter Indwelling Urinary Dc, Leg Bag Care Dc Admission Data Admit Date/Time: 05/11/19 13:07 Attending Provider: Byron Astorga Admit Provider: Byron Astorga Primary Care Provider: PCP,NO Other Interventions: Discharge Summary Assessment (RN) Last Done: 05/13/19 11:41 DC Date/Time DO NOT enter until pt leaves facility: 05/13/19 12:51
== END 2019-05-13 12:51 | disposition home or self-care (01) | DRG 708 ==
LOC: ASU 05:30 → 3W 13:07